=== PATIENT | female | born 1980 | race Caucasian/White ===

== ENCOUNTER 2020-10-03 08:10 | Emergency (ER) | payer OTHER ==
[~2020-10-03] VITALS: Ht 170.2 cm; Wt 62.6 kg
[~2020-10-03 08:10] MED LIST: AMOXICILLIN875 MG PO; HYDROCODONE-ACE15 ML PO; NOHOMEMEDICATIONS
[2020-10-03 08:59] VITALS: BP 128/84
--- NOTE | 2020-10-03 14:07 | EKG ---
[place] [address] [facility] [place] [address] ELECTROCARDIOGRAM REPORT Name: DANNI DOZIER Room #: DEP Rishi#: [id number] Admission: 10/03/20 Attend Phys: Discharge: 10/03/20 Date of : 78 Report #: [id number] [facility] ED Test Date: 2020-10-03 Test Time: 08:16:23 Pat Name: DANNI DOZIER Department: Room: Gender: F Assistant Office Manager: HALIMA : 1980 Requested By: Diogo Castelan Order Number: [id number] MD: Pierce Riddle Measurements Intervals [place] Rate: 112 P: 75 OK: 149 QRS: 90 QRSD: 90 T: 13 QT: 336 QTc: 459 Interpretive Statements Sinus tachycardia Borderline right axis deviation Baseline wander in lead(s) V1 No previous ECG available for comparison Electronically Signed On 10-03-2020 14:06:49 BUSINESS REPORTER by Pierce Riddle [email or web address] <ELECTRONICALLY SIGNED> By: Pierce Riddle MD, [facility] 10/03/20 1406 0816 08 Pierce Riddle MD, FACAshley /EPI
== END 2020-10-03 08:57 | disposition home or self-care (01) ==
LOC: ER 08:10
DX: R00.2 Palpitations (principal); G43.909 Migraine, unspecified, not intractable, without status migrainosus; F12.90 Cannabis use, unspecified, uncomplicated